=== PATIENT | female | born 1990 | race Hispanic/Latino ===

== ENCOUNTER 2022-03-30 03:30 | Inpatient (IN) | payer OTHER, SELFPAY ==
[2022-03-30] VITALS (26 sets, daily range): BP systolic 31–163; BP diastolic 21–118; PULSE 76–133; RESP 16; TEMP 36.8–37.3; O2SAT 99–100
--- NOTE | 2022-03-30 05:59 | P.HP_ITS ---
H&P: HPI History of Present Illness Date/Time: 03/30/22 05:59 Chief Complaint: Term and Narrative: 31-year-old 1 para 0 whose last menstrual period was 07/04/2021, EDC is 04/10/2022, presents at 38 half weeks gestation in active labor. [facility] 1st visit here was at 22 weeks. She is negative group B strep. Her has been otherwise uncomplicated she is [place]-speaking Meds Home Medications and Allergies Allergies Allergy/AdvReac Type Severity Reaction Status Date / Time No Known Allergies Allergy Verified 03/30/22 06:01 Vital Signs Vital Signs - 24 hr 03/30/22 05:46 03/30/22 05:48 Pulse Rate 87 85 Blood Pressure 126/93 H 134/79 Exam Const: General: cooperative, healthy appearing and no acute distress Nutritional Appearance: average body habitus Orientation/consciousness: oriented to person, oriented to place and oriented to time HENMT: Head: normal to inspection Resp: Effort & Inspection: normal respiratory effort Cardio: Rate: regular rate Rhythm: regular rhythm Heart sounds: S1 normal heart sound present and S2 normal heart sound present GI: Inspection: normal to inspection ( fundus consistent with dates) Auscultation: normal bowel sounds : Speculum Exam - Vagina: normal appearance of the vagina Speculum Exam - Cervix: normal appearance of the cervix ( cervix 4/-2. AROM meconium present. heart tones reassuring) Assessment and Plan Assessment and plan (1) Term : Code(s): Z34.90 - Encounter for supervision of normal , unspecified, unspecified trimester Status: Acute (2) Active labor: Status: Acute Plan spontaneous vaginal delivery is expected. She is somewhat reluctant for an epidural at this point but is considering. Will make peds aware of meconium fluid
[2022-03-30] MEDS: AMPICILLIN 2 GM/NS 100 ML 2 GM/100 ML BAG IVPB (06:09)
[2022-03-30] MEDS: LACTATED RINGERS 1,000 ML 125 ML IV CONT (06:10)
--- NOTE | 2022-03-30 06:10 | LDADM ---
This patient, Marisa Kitchen, was admitted to Labor/Delivery/Recovery 105 on 03/30/22 at 05:59. Plans for labor, pain management and were discussed with patient. Patient/family oriented to hospital policies and general routines including ID bracelet, bed and alarms, visiting hours, pain management, procedures, bathroom and other care routines, personal items, smoking policy, room service/diet and guest tray routines, security routines, and visiting hours. Patient/Family are encouraged to report perceived risks to care and to ask questions if they do not understand what they are told or what they should do. See OBIX for further documentation.
[2022-03-30 06:26] LABS: Basophils Absolute Auto 0.1 K/mm3 (0.0-0.1); Basophils Percent Auto 0.6 % (0.2-1.2); Eosinophils Absolute Auto 0.1 K/mm3 (0-0.3); Eosinophils Percent Auto 0.5 % (0-4.4); Hemoglobin 9.8 g/dL (12.0-15.0); Immature Granulocyte Absolute 0.07 K/mm3 (0.00-0.031); Immature Granulocyte Percent A 0.5 % (0-0.5); Lymphocytes Absolute Auto 1.35 K/mm3 (0.9-3.2); Lymphocytes Percent Auto 9.7 % (18.3-44.2); Mean Corpuscular HGB Conc 31.6 g/dl (32-36); Mean Corpuscular Hemoglobin 22.3 pg (26-34); Mean Corpuscular Volume 70.6 fl (80-100); Mean Platelet Volume 9.6 fl (7.4-10.4); Monocytes Absolute Auto 0.5 K/mm3 (0.1-0.6); Monocytes Percent Auto 3.7 % (2.6-8.5); Neutrophils Absolute Auto 11.8 K/mm3 (1.3-6.7); Platelet Count Result 498 k/mm3 (150-375); Red Blood Count 4.39 M/mm3 (4.2-5.4); Red Cell Distribution Width 18.6 % (11.5-14.5); White Blood Count 13.9 K/mm3 (4.5-10.0)
[2022-03-30 07:15] LABS: Macrocytosis 1+ (NORMAL); Platelet Estimate Increased (Adequate); Poikilocytosis 1+ (NORMAL); Target Cells 1+ (NORMAL)
[2022-03-30 07:16] LABS: Hypochromasia 1+ (NORMAL); Schistocytes Rare (NORMAL)
[2022-03-30] MEDS: fentaNYL CITRATE INJ (*CRX) 100 MCG/2 ML VIAL 50 MCG IV PUSH ×2 (07:50→09:00)
[2022-03-30 08:08] LABS: Rubella IgG Antibody > 120.0 IU/ML
[2022-03-30] MEDS: AMPICILLIN 1 GM/NS 50 ML 1 GM/50 ML BAG IVPB (10:22)
--- NOTE | 2022-03-30 10:41 | PM.OBPNLAB ---
Pain Control Date/time seen: 03/30/22 10:41 Pain control: tolerating well Pelvic Exam Dilation (cm): 10 Effacement (%): 100 station: -1 Amniotic membrane status: Leaking
[2022-03-30] MEDS: OXYTOCIN 30 UNITS/NS 500 ML 30 UNITS/500 ML BAG 999 UNITS IV CONT (12:30)
--- NOTE | 2022-03-30 14:06 | PM.OBPRVD ---
OB - Delivery Note Procedure Delivery date: 03/30/22 Induction method: None Delivery monitor: External FHT Route of delivery: Episiotomy description: Midline Laceration Description: None Delivery repair: vicryl Quantitative Blood Loss (ml): 60 Anesthesia type: Local Disposition: Floor [place] Baby Date of : 03/30/22 Time of : 13:52 Weeks of gestation at delivery: 38 gender: Male presentation: vertex position: Right Occiput Posterior Placenta delivery description: Spontaneous Cord Vessel Description: 3 Vessels, Nuchal Cord, Tight and Clamped/Cut
[2022-03-30] MEDS: OXYTOCIN 30 UNITS/NS 500 ML 30 UNITS/500 ML BAG 125 UNITS IV CONT (14:37)
[2022-03-30] MEDS: LIDOCAINE HCL 1% PF 30 ML VIAL (14:38)
[2022-03-30] MEDS: POLYSACCHARIDE IRON COMPLEX 150 MG CAPSULE PO (17:14)
[2022-03-30] MEDS: IBUPROFEN 600 MG TABLET PO (17:14)
[2022-03-30] MEDS: DOCUSATE SODIUM 100 MG CAPSULE PO (17:15)
--- NOTE | 2022-03-30 18:49 | OBPPTRN ---
1639 Patient transferred to post room #282 via W/C. Support person present. Oriented to unit, room, information board, rooming in, admission packet and security measures. Patient verbalizes understanding.
[2022-03-30] MEDS: ACETAMINOPHEN 325 MG TABLET 650 MG PO (19:18)
[2022-03-31 03:50] VITALS: BP 110/65; PULSE 87; RESP 16; TEMP 37.1; O2SAT 100
[2022-03-31 05:57] LABS: Hemoglobin 6.7 g/dL (12.0-15.0)
[2022-03-31 05:58] LABS: Hematocrit 20.9 % (37.0-47.0)
[2022-03-31 07:30] VITALS: BP 117/66; PULSE 84; RESP 16; TEMP 37.1; O2SAT 99
[2022-03-31] MEDS: IBUPROFEN 600 MG TABLET PO (07:30)
[2022-03-31] MEDS: DOCUSATE SODIUM 100 MG CAPSULE PO ×2 (07:31→19:40)
[2022-03-31] MEDS: POLYSACCHARIDE IRON COMPLEX 150 MG CAPSULE PO ×2 (07:31→19:40)
[2022-03-31] MEDS: MULTIVIT/MIN/PREN/FOL AC/IRON TABLET 1 TAB PO (07:32)
--- NOTE | 2022-03-31 10:35 | PM.OBPNVD ---
OB - PN: Subj Subjective Date/time seen: 03/31/22 10:35 Patient comments: no complaints and pain well controlled baby status: doing well and nursing well OB - PN: Obj Data Labs 03/31/22 05:33 Labs: Laboratory Results - last 24 hr 03/31/22 05:33 Hgb 6.7 L* D Hct 20.9 L* OB - PN A/P Plan day: 1 Plan: routine care Time Spent With Patient Time: Total time spent is greater than 50% in coordination of care (as documented) at patient's floor/unit and/or counseling patient: Time with patient: less than 15 minutes Exam Const: General: cooperative, healthy appearing and comfortable Nutritional Appearance: average body habitus Orientation/consciousness: oriented to person, oriented to place and oriented to time HENMT: Head: normal to inspection Resp: Effort & Inspection: normal respiratory effort Cardio: Rate: regular rate Rhythm: regular rhythm Heart sounds: S1 normal heart sound present and S2 normal heart sound present GI: Inspection: normal to inspection (Fundus firm below the umbilicus)
--- NOTE | 2022-03-31 10:37 | PM.DS ---
DS: Admitting Diagnosis Discharge Date 04/01/2022 Admitting Diagnosis term DS: Discharge Diagnosis Discharge Diagnosis (1) Active labor: Status: Acute (2) Term : Code(s): Z34.90 - Encounter for supervision of normal , unspecified, unspecified trimester Status: Acute DS: Summary Hospital Course Reason for hospitalization: patient was admitted in active labor at term. She underwent spontaneous vaginal delivery. Her hospital course was unremarkable. She remained afebrile. She was up, voiding without difficulty, ambulating, eating regular diet, breast-feeding, general without complaints. Hospital Course: see above Time Spent with Patient Time attestation: Total time spent providing and/or coordinating discharge services: Exam Const: General: cooperative, healthy appearing and comfortable Nutritional Appearance: average body habitus Orientation/consciousness: oriented to person, oriented to place and oriented to time HENMT: Head: normal to inspection Chest: Chest palpation & inspection: normal inspection of the chest Resp: Effort & Inspection: normal respiratory effort Cardio: Rate: regular rate Rhythm: regular rhythm Heart sounds: S1 normal heart sound present and S2 normal heart sound present GI: Inspection: normal to inspection DS: Data Data Completed and Pending Labs on day of discharge: Labs from last 24 hours 03/31/22 05:33 Hgb 6.7 L* D Hct 20.9 L* Discharge Plan Discharge Attending physician on discharge: Aki Benedict Discharging Clinician: Aki Benedict Patient Disposition: Home, Self-Care Activity: may shower and pelvic rest Diet: heart healthy Wound Care Instructions: follow printed instructions Stand Alone Forms: General Discharge Information Follow-up/Referrals: Aki Benedict MD [Physician] - Discharge Medications: Continued PNV [id number] [] 28 mg iron- 800 mcg tablet 1 tablet PO DAILY Date of admission: 03/30/22 05:59 Primary Care Provider: UNKNOWN,DOCTOR Admitting Provider: Aki Benedict Attending physician on admission: Aki Benedict Condition: Stable
[2022-03-31 12:45] VITALS: BP 115/66; PULSE 77; RESP 16; TEMP 37.3; O2SAT 99
[2022-03-31] MEDS: ACETAMINOPHEN 325 MG TABLET 650 MG PO ×2 (12:50→19:40)
[2022-03-31 15:12] VITALS: BP 124/64; PULSE 87; RESP 16; TEMP 36.6; O2SAT 100
[2022-03-31 19:40] VITALS: BP 108/61; PULSE 82; RESP 16; TEMP 36.8; O2SAT 100
[2022-04-01 05:55] LABS: Rapid Plasma Reagin Non-Reactive (NonReactive)
[2022-04-01 08:00] VITALS: BP 119/66; PULSE 90; RESP 18; TEMP 37.4; O2SAT 100
[2022-04-01] MEDS: IBUPROFEN 600 MG TABLET PO (08:05)
[2022-04-01] MEDS: DOCUSATE SODIUM 100 MG CAPSULE PO (08:05)
[2022-04-01] MEDS: MULTIVIT/MIN/PREN/FOL AC/IRON TABLET 1 TAB PO (08:07)
[2022-04-01] MEDS: POLYSACCHARIDE IRON COMPLEX 150 MG CAPSULE PO (08:07)
--- NOTE | 2022-04-01 08:35 | PM.OBPNVD ---
OB - PN: Subj Subjective Date/time seen: 04/01/22 08:35 Patient comments: no complaints and pain well controlled baby status: doing well OB - PN: Obj Data Labs 03/31/22 05:33 Labs: Laboratory Results - last 24 hr 03/30/22 06:08 RPR Non-reactive OB - PN A/P Plan day: 2 Plan: routine care, discharge home and follow up 6 weeks Time Spent With Patient Time: Total time spent is greater than 50% in coordination of care (as documented) at patient's floor/unit and/or counseling patient: Time with patient: less than 15 minutes Exam Const: General: cooperative, healthy appearing and comfortable Nutritional Appearance: average body habitus Orientation/consciousness: oriented to person, oriented to place and oriented to time HENMT: Head: normal to inspection Resp: Effort & Inspection: normal respiratory effort Cardio: Rate: regular rate Rhythm: regular rhythm Heart sounds: S1 normal heart sound present and S2 normal heart sound present GI: Inspection: normal to inspection ( fundus firm below the umbilicus)
--- NOTE | 2022-04-01 08:58 | PC.NURSE ---
Patient viewed the discharge video Mother & Baby Care, The First Two Weeks . Patient was given the opportunity and encouraged to ask questions. Patient verbalized understanding of information shared and has been given the mother/baby guide for home reference.
--- NOTE | 2022-04-01 09:09 | PC.NURSE ---
[id number] With assistance of [facility] #[id number] staff interpreter Introductions were made, then consulted with patient to assess needs related to . Mother led the conversation with her?plans to feed?her , the?experience so far and demonstrated an effective latch to the right breast. Mother works well with her . Encouraged understanding of the benefits of skin to skin (demonstrating unwrapping infant and placing upright on her chest), stimulating with massage touch, changing positions to encourage wakefulness, how to watch for early feeding cues, responsive feeding, feeding on demand (aiming for 8-12 times in 24 hours, about every 2-3 hours), milk production, building/maintaining a milk supply, duration of feeding, signs of adequate intake/output and how to record on the feeding sheet. Reviewed positioning and ear, shoulder, hip alignment, supporting the breast to facilitate a deep latch, asymmetrical latch (off-center), leading with the chin with a big, open, wide gape and body close to mother. Education given to mother of how to visualize suck/swallow ratios and listen for drinking at the breast. Infant was able to maintain latch without discomfort to mother on both breast. Nipple care reviewed with optimal latch and good positioning. Reviewed good handwashing when or touching the breast/nipples to prevent infection. Resources used to facilitate learning were used with the [place] book with QR codes and tool. Mother voiced understanding of skin to skin, stimulating with massage touch, responsive feedings, talking to infant to encourage if it has been 2 -2.5 hours since the start of the last , to call if does not latch, or if there is discomfort with . Resources provided and parents voiced understanding of information, demonstrated learning and Mother states she is confident to continue effectively her infant at home. Discussion was had regarding the risks and benefits of pumping and supplementing with formula. Reinforced understanding of milk production, transition of milk, signs of adequate intake, transition of stool, prevention/relief of engorgement, responsive watching for feeding cues, the different methods of stimulating to breastfeed 2-3 hours after the start of the last feeding, community resources, medication information reviewed per [employer] and when to call a provider. Mother voiced understanding of the education shared with the assistance of an staff interpreter for the entire consult. Reported to the primary RN.
--- NOTE | 2022-04-01 12:57 | PC.NURSE ---
1100 RN completed discharge teaching using the Language Line ([employer]), mother and father were able to ask questions and voice any concerns. Pt discharged home at 1115.
[2022-04-02 10:32] VITALS: BP 139/77; PULSE 94; RESP 16; TEMP 36.9; O2SAT 100
== END 2022-04-01 11:15 | disposition home or self-care (01) | DRG 560 ==
LOC: ANHLDR 05:59 → ANHOB2 17:43
PROVIDERS: Admitting Provider Obstetrics & Gynecology; Visit Provider Obstetrics & Gynecology
DX: O69.81X0 Labor and delivery complicated by cord around neck, without compression, not applicable or unspecified (principal); O77.0 Labor and delivery complicated by meconium in amniotic fluid; Z37.0 Single live birth; Z3A.38 38 weeks gestation of pregnancy
CPT/HCPCS: 36415; 85014; 85018; 85025; 86592; 86762; 86850; 86900; 86901; A9270; J0290; J2590; J3010; J7120